=== PATIENT | female | born 1965 | race Asian ===

== ENCOUNTER 2017-08-27 10:20 | Inpatient (IN) | payer BC ==
[~2017-08-27] VITALS: Ht 157.5 cm; Wt 97.6 kg
[2017-08-27] MEDS ORDERED: FAMOTIDINE 20 MG/2 ML IVP ONE (11:00)
[2017-08-27] MEDS ORDERED: SODIUM CHLORIDE 0.9% 1,000ML IVBOLUS ONE (11:00)
[2017-08-27] MEDS ORDERED: ONDANSETRON 2MG/ML, 2ML IVPush ONE (11:00)
[2017-08-27 11:19] LABS: BASOPHILS # (AUTO) 0.06 x10^3/uL (0-0.1); BASOPHILS % (AUTO) 1 % (0-1); EOSINOPHILS # (AUTO) 0.04 x10^3/uL (0-0.4); EOSINOPHILS % (AUTO) 0 % (1-7); LYMPHOCYTES # (AUTO) 1.68 x10^3/uL (1-3.4); LYMPHOCYTES % (AUTO) 15 % (22-44); MD NO; MEAN CORPUSCULAR HGB CONC 33.9 g/dL (32.4-35.8); MEAN CORPUSCULAR VOLUME 91.5 fL (80-100); MONOCYTES # (AUTO) 0.42 x10^3/uL (0.2-0.8); MONOCYTES % (AUTO) 4 % (2-9); NEUTROPHILS # (AUTO) 9.12 x10^3/uL (1.8-6.8); NEUTROPHILS % (AUTO) 81 % (42-75); PLATELET COUNT 205 x10^3/uL (130-400); RED BLOOD COUNT 4.47 x10^6/uL (3.82-5.3); RED CELL DISTRIBUTION WIDTH 13.2 % (9.6-15.2)
[2017-08-27 11:30] LABS: ALANINE AMINOTRANSFERASE 24 U/L (12-78); ALBUMIN 3.9 g/dL (3.4-5.0); ANION GAP 16 mmol/L (5-15); CALCIUM 7.5 mg/dL (8.5-10.1); CHLORIDE 86 mmol/L (98-107); CREATININE 0.89 mg/dL (0.55-1.02)
[2017-08-27] MEDS ORDERED: PLEASE ENTER ALLERGIES MC SCH (11:30)
[2017-08-27 11:32] LABS: ALKALINE PHOSPHATASE 70 U/L (45-117); BILIRUBIN,TOTAL 0.6 mg/dL (0.2-1.0); TOTAL PROTEIN 7.3 g/dL (6.4-8.2)
[2017-08-27] MEDS ORDERED: FAMOTIDINE 20 MG/2 ML ONE (12:19)
[2017-08-27] MEDS ORDERED: ONDANSETRON 2MG/ML, 2ML ONE (12:19)
[2017-08-27 12:26] LABS: ALBUMIN 3.3 g/dL (3.4-5.0); ANION GAP 13 mmol/L (5-15); CALCIUM 6.7 mg/dL (8.5-10.1); CHLORIDE 91 mmol/L (98-107)
[2017-08-27 12:37] LABS: ALANINE AMINOTRANSFERASE 21 U/L (12-78); ALKALINE PHOSPHATASE 61 U/L (45-117); BILIRUBIN,TOTAL 0.4 mg/dL (0.2-1.0); CREATININE 0.71 mg/dL (0.55-1.02); THYROID STIMULATING HORMONE 0.597 mIU/L (0.358-3.740); TOTAL PROTEIN 6.1 g/dL (6.4-8.2)
[2017-08-27] MEDS ORDERED: SODIUM CHLORIDE 0.9% 1,000 ML IV SCH (13:00)
[2017-08-27] MEDS ORDERED: POTASSIUM CHLORIDE 40 MEQ in SODIUM CHLORIDE 0.9% 500 ML IV ONE (13:00)
[2017-08-27] MEDS ORDERED: LORazepam 2 MG/ML, 1ML IVPush ONE (14:30)
[2017-08-27] MEDS ORDERED: LORazepam 2 MG/ML, 1ML ONE (14:33)
[2017-08-27 17:22] LABS: MICROSCOPIC NOT IND
[2017-08-27 17:24] LABS: CULTURE INDICATED? NO
[2017-08-27 18:22] VITALS: BP 130/72
[2017-08-27] MEDS ORDERED: PHARMACOKINETIC MONITORING MC PRN (18:30)
[2017-08-27] MEDS ORDERED: LORazepam 2 MG/ML, 1ML IVPush PRN (18:30)
[2017-08-27] MEDS ORDERED: OXYcodone IR 5MG TABLET PO PRN (18:30)
[2017-08-27] MEDS ORDERED: D5%-0.9% NACL+KCL 20MEQ 1,000 ML IV SCH (18:30)
[2017-08-27] MEDS ORDERED: BISACODYL 10 MG SUPP PR PRN (18:30)
[2017-08-27] MEDS ORDERED: CALCIUM GLUCONATE 4.6 MEQ in SODIUM CHLORIDE 0.9% 50 ML IV ONE (18:30)
[2017-08-27] MEDS ORDERED: hydrALAzine 20 MG/ML, 1ML IVPush PRN (18:30)
[2017-08-27] MEDS ORDERED: VANCOMYCIN PER PHARMACY MC PRN (18:30)
[2017-08-27] MEDS ORDERED: POLYETHYLENE GLYCOL 17 GM PACKET PO PRN (18:30)
[2017-08-27] MEDS ORDERED: DOCUSATE 100 MG CAPSULE PO PRN (18:30)
[2017-08-27] MEDS ORDERED: ENALAPRILAT 1.25 MG/ML, 2ML IVPush PRN (18:30)
[2017-08-27] MEDS ORDERED: CEFTRIAXONE PMX 2GM/50ML 50 ML IV SCH (18:30)
[2017-08-27] MEDS ORDERED: ONDANSETRON 2MG/ML, 2ML IVPush PRN (18:30)
[2017-08-27] MEDS ORDERED: PHARMACOKINETIC CONSULTATION MC ONE (18:30)
[2017-08-27] MEDS ORDERED: morphine SULFATE 10 MG/ML, 1ML IVPush PRN (18:30)
[2017-08-27] MEDS ORDERED: VANCOMYCIN PMX 1GM/200ML 200 ML IV ONE (19:00)
[2017-08-27 19:10] LABS: HCT (SEDRATE) 37.7 % (34.6-47.8)
[2017-08-27 19:17] LABS: ANION GAP 11 mmol/L (5-15); C-REACTIVE PROTEIN, QUANT 0.06 mg/dL (0.02-0.49); CALCIUM 7.3 mg/dL (8.5-10.1); CHLORIDE 95 mmol/L (98-107)
[2017-08-27 19:19] LABS: CREATINE KINASE, TOTAL 494 U/L (26-192)
[2017-08-27 19:21] LABS: HEMOGLOBIN A1C 5.9 % (4.2-6.3)
[2017-08-27 19:28] VITALS: BP 114/61
[2017-08-27] MEDS: CEFTRIAXONE 2,000 MG in SODIUM CHLORIDE 0.9% 50 ML IV SCH (22:51)
[2017-08-27] MEDS: HEPARIN 5,000 UNITS/ML, 1ML SQ SCH (23:05)
[2017-08-28 00:51] VITALS: BP 115/70
[2017-08-28 01:32] LABS: ANION GAP 9 mmol/L (5-15); CHLORIDE 104 mmol/L (98-107); CREATININE 0.73 mg/dL (0.55-1.02)
[2017-08-28 05:18] LABS: ALBUMIN 3.2 g/dL (3.4-5.0); ANION GAP 9 mmol/L (5-15); CHLORIDE 110 mmol/L (98-107)
[2017-08-28 05:20] LABS: BASOPHILS # (AUTO) 0.03 x10^3/uL (0-0.1); BASOPHILS % (AUTO) 0 % (0-1); EOSINOPHILS # (AUTO) 0.09 x10^3/uL (0-0.4); EOSINOPHILS % (AUTO) 1 % (1-7); LYMPHOCYTES # (AUTO) 1.48 x10^3/uL (1-3.4); LYMPHOCYTES % (AUTO) 20 % (22-44); MD NO; MEAN CORPUSCULAR HEMOGLOBIN 31.3 pg (27.0-34.8); MEAN CORPUSCULAR HGB CONC 34.2 g/dL (32.4-35.8); MEAN CORPUSCULAR VOLUME 91.4 fL (80-100); MEAN PLATELET VOLUME 8.8 fL (7.4-10.4); MONOCYTES # (AUTO) 0.63 x10^3/uL (0.2-0.8); MONOCYTES % (AUTO) 8 % (2-9); NEUTROPHILS # (AUTO) 5.32 x10^3/uL (1.8-6.8); NEUTROPHILS % (AUTO) 70 % (42-75); PLATELET COUNT 193 x10^3/uL (130-400); RED BLOOD COUNT 4.16 x10^6/uL (3.82-5.3); RED CELL DISTRIBUTION WIDTH 13.7 % (9.6-15.2)
[2017-08-28 05:22] LABS: ALANINE AMINOTRANSFERASE 20 U/L (12-78); ALKALINE PHOSPHATASE 61 U/L (45-117); BILIRUBIN,TOTAL 0.5 mg/dL (0.2-1.0); CHOL/HDL RATIO 2.8; CHOLESTEROL, TOTAL 180 mg/dL (140-239); CREATININE 0.66 mg/dL (0.55-1.02); HDL CHOL % 36 % (28-40); HDL CHOLESTEROL (DIRECT) 64 mg/dL (40-60); LDL CHOLESTEROL,CALCULATED 93 mg/dL (54-169); LDL/HDL RATIO 1.5 (0.5-3.0); TOTAL PROTEIN 6.4 g/dL (6.4-8.2); TRIGLYCERIDES 115 mg/dL (50-200); VLDL CHOLESTEROL 23 mg/dL (0-25)
[2017-08-28 07:46] VITALS: BP 114/70
[2017-08-28] MEDS: VANCOMYCIN PMX 1GM/200ML 200 ML IV SCH ×2 (08:39→20:40)
[2017-08-28] MEDS ORDERED: MAGNESIUM SULFATE PMX 2GM/50ML 50 ML IV ONE (09:30)
[2017-08-28] MEDS: HEPARIN 5,000 UNITS/ML, 1ML SQ SCH ×2 (10:01→18:11)
[2017-08-28 14:30] VITALS: BP 101/59
[2017-08-28] MEDS: ACETAMINOPHEN 325 MG TABLET PO PRN (16:26)
[2017-08-28] MEDS: CEFTRIAXONE 2,000 MG in SODIUM CHLORIDE 0.9% 50 ML IV SCH (18:12)
[2017-08-28 19:07] VITALS: BP 104/65
[2017-08-29] MEDS: HEPARIN 5,000 UNITS/ML, 1ML SQ SCH ×2 (01:50→11:06)
[2017-08-29 02:00] VITALS: BP 107/63
[2017-08-29] MEDS: ACETAMINOPHEN 325 MG TABLET PO PRN (03:12)
[2017-08-29 05:28] LABS: ANION GAP 10 mmol/L (5-15); CALCIUM 7.8 mg/dL (8.5-10.1); CHLORIDE 108 mmol/L (98-107)
[2017-08-29 05:28] LABS: BASOPHILS # (AUTO) 0.04 x10^3/uL (0-0.1); BASOPHILS % (AUTO) 1 % (0-1); EOSINOPHILS # (AUTO) 0.22 x10^3/uL (0-0.4); EOSINOPHILS % (AUTO) 4 % (1-7); LYMPHOCYTES # (AUTO) 1.71 x10^3/uL (1-3.4); LYMPHOCYTES % (AUTO) 30 % (22-44); MD NO; MEAN CORPUSCULAR HEMOGLOBIN 31.3 pg (27.0-34.8); MEAN CORPUSCULAR HGB CONC 34.3 g/dL (32.4-35.8); MEAN CORPUSCULAR VOLUME 91.3 fL (80-100); MEAN PLATELET VOLUME 8.8 fL (7.4-10.4); MONOCYTES # (AUTO) 0.46 x10^3/uL (0.2-0.8); MONOCYTES % (AUTO) 8 % (2-9); NEUTROPHILS # (AUTO) 3.21 x10^3/uL (1.8-6.8); NEUTROPHILS % (AUTO) 57 % (42-75); PLATELET COUNT 183 x10^3/uL (130-400); RED BLOOD COUNT 4.24 x10^6/uL (3.82-5.3); RED CELL DISTRIBUTION WIDTH 13.8 % (9.6-15.2)
[2017-08-29 05:29] LABS: CREATININE 0.72 mg/dL (0.55-1.02)
[2017-08-29 08:30] VITALS: BP 114/80
[2017-08-29] MEDS: VANCOMYCIN PMX 1GM/200ML 200 ML IV SCH (09:01)
[2017-09-01 14:25] LABS: ANA SCREEN NEGATIVE (Negative)
== END 2017-08-29 13:04 | disposition home or self-care (01) | DRG 640 ==
LOC: ED 12:24 → EDIP 13:02 → 4WST 17:21
PROVIDERS: ADMIT Hospitalist; ATTEND Hospitalist
PROC: 0T9B70Z Drainage of Bladder with Drainage Device, Via Natural or Artificial Opening (ICD-10-PCS; principal; 2017-08-27)
DX: E87.1 Hypo-osmolality and hyponatremia (principal); G93.41 Metabolic encephalopathy; R65.10 Systemic inflammatory response syndrome (SIRS) of non-infectious origin without acute organ dysfunction; D72.829 Elevated white blood cell count, unspecified; E86.0 Dehydration; E87.6 Hypokalemia; R73.9 Hyperglycemia, unspecified; R11.2 Nausea with vomiting, unspecified; F45.9 Somatoform disorder, unspecified
CPT/HCPCS: 36415; 70450; 71045; 80048; 80053; 80061; 81003; 82533; 82550; 83036; 83605; 83690; 83735; 84100; 84439; 84443; 85025; 85651; 86038; 86140; 87040; 93005; 93306; J0610; J0696; J1644; J2405; J3370; J3480; J3475; J7030; J7040; S0028